=== PATIENT | female | born 1970 | race Native Hawaiian/Other Pacific Islander ===

== ENCOUNTER 2020-02-13 09:33 | Outpatient (CLI) | payer OTHER ==
--- NOTE | 2020-02-13 10:42 | XRay Report ---
XR knee BILAT 1-2V INDICATION / CLINICAL INFORMATION: BILATERAL KNEE PAIN. COMPARISON: None available. FINDINGS: BONES/JOINT(S): No acute fracture or subluxation. Mild bilateral tricompartmental DJD with mild joint space loss and marginal osteophytosis. No significant joint effusion bilaterally. SOFT TISSUES: No significant abnormality. ADDITIONAL FINDINGS: None. Signer Name: Estuardo Guo MD Signed: 02/13/2020 10:38 AM Workstation Name: [email or web address]
== END 2020-02-13 09:34 | disposition home or self-care (01) ==
LOC: XRAY 09:33
PROVIDERS: ATTEND Internal Medicine
DX: M17.11 Unilateral primary osteoarthritis, right knee (principal); M17.12 Unilateral primary osteoarthritis, left knee